=== PATIENT | female | born 1950 | race Caucasian/White ===

== ENCOUNTER → 2017-11-29 | Outpatient (CLI) | payer MEDICARE, OTHER ==
[~2017-11-29] MED LIST: ACET325; ACET325 PO; AMIT10; AMIT10 PO; ASPI81CH; ASPI81CH PO; ASPI81EC PO; AZEL137S NS; AZELASTINE137 MCG/0.; CETI10; CETI10 PO; CHOL10002; CHOL10002 PO; CICL.77TC; CYAN100 PO; CYAN1000; CYCL10; CYCL10 PO; DIAZ2; DIAZ2 PO; ESTR.1TPB TOP; ESTR.1TPBW; ESTR.1TPBW TOP; Evening Primro500 M1; FISH1000; FISH1000 PO; FLAX; FLAX PO; FLUO25TC; FLUO25TC TOP; HORMONE PATCH; HYDACE25S PR; HYDCHL12.5; HYDCHL12.5 PO; IPRAOI; IPRAOI INH; LOSA50 PO; LOSARTAN POTAS100 MG; MAGNESIUM250 MG; MAGOXI400 PO; METR59TL TOP; MOMENI; MULVITMIND; MULVITMIND PO; Metrocream45 GM; NAPR220; NAPR220 PO; ONDA4 PO; ONDA4ODT MM; OXYACE5T PO; OXYTROL PATCH; Oxytrol3.9 MG; PRIMROSE OIL PO; PYRI100 PO; RXONDA4ODT MM; RXOXYACE PO; UBID10; Vitamin D400 UNI1; ZYRTEC10 M2; Zofran4 MG PO; [UNRECOGNIZED DRUG - OTHER]; [UNRECOGNIZED DRUG - OTHER]
== END ==
LOC: PLD 10:33 → LAB SHORT 10:33
DX: D48.5 Neoplasm of uncertain behavior of skin (principal)
CPT/HCPCS: 88305

== ENCOUNTER 2018-03-30 09:21 | Day surgery (SDC) | payer MEDICARE, OTHER ==
[~2018-03-30] VITALS: Ht 162.6 cm; Wt 86.3 kg
[2018-03-30] MEDS ORDERED: METF500C ×2 (09:44→09:54)
[2018-03-30] MEDS ORDERED: Atrovent Inha12.9 GM (09:54)
[2018-03-30] MEDS ORDERED: MOMENI (09:54)
[2018-03-30] MEDS ORDERED: CETI5 (09:55)
[2018-03-30] MEDS ORDERED: Metrocream45 GM (09:55)
[2018-03-30] MEDS ORDERED: CYCL10 (09:55)
[2018-03-30] MEDS ORDERED: FISH OIL + D31 EACH (09:56)
== END 2018-03-30 11:53 | disposition home or self-care (01) ==
LOC: ORSCSDS 09:21
PROVIDERS: Internal Medicine Gastroenterology
PROC: 0DBK8ZX Excision of Ascending Colon, Via Natural or Artificial Opening Endoscopic, Diagnostic (ICD-10-PCS; principal; 2018-03-30 10:30)
PROC: 0DBN8ZX Excision of Sigmoid Colon, Via Natural or Artificial Opening Endoscopic, Diagnostic (ICD-10-PCS; principal; 2018-03-30 10:30)
PROC: 0DBL8ZX Excision of Transverse Colon, Via Natural or Artificial Opening Endoscopic, Diagnostic (ICD-10-PCS; principal; 2018-03-30 10:30)
DX: Z12.11 Encounter for screening for malignant neoplasm of colon (principal); D12.2 Benign neoplasm of ascending colon; D12.3 Benign neoplasm of transverse colon; K63.5 Polyp of colon; K64.8 Other hemorrhoids; Z86.010 Personal history of colon polyps; E11.9 Type 2 diabetes mellitus without complications; I10 Essential (primary) hypertension; J45.909 Unspecified asthma, uncomplicated; Z79.82 Long term (current) use of aspirin; Z79.899 Other long term (current) drug therapy
CPT/HCPCS: 82947; 88305

== ENCOUNTER → 2018-09-06 | Outpatient (CLI) | payer MEDICARE, OTHER ==
[~2018-09-06] MED LIST changes: +Atrovent Inha12.9 GM; +Azelex30 GM; +CETI5; +DIAZ5; +FISH OIL + D31 EACH; +METANX CAPSULE1 EACH; +METF500C; +PANT20; +Valium5 MG PO
[2018-09-08 15:06] LABS: HPV 16 Negative (Negative); HPV 18 Negative (Negative); HPV OTHER HR TYPES Negative (Negative)
== END | disposition home or self-care (01) ==
LOC: LAB SHORT 19:13 → LAB 19:13
PROVIDERS: Obstetrics & Gynecology Gynecology
DX: Z12.72 Encounter for screening for malignant neoplasm of vagina (principal)
CPT/HCPCS: 87624; G0123

== ENCOUNTER → 2018-12-06 | Outpatient (CLI) | payer MEDICARE, OTHER | END | disposition home or self-care (01) | LOC: PLD 10:10 → LAB SHORT 10:10 | DX: D48.5 Neoplasm of uncertain behavior of skin (principal) | CPT/HCPCS: 88305 ==

== ENCOUNTER → 2019-06-11 | Outpatient (CLI) | payer MEDICARE, OTHER | END | disposition home or self-care (01) | LOC: PLD 07:57 → LAB SHORT 07:57 | DX: D48.5 Neoplasm of uncertain behavior of skin (principal) | CPT/HCPCS: 88305 ==

== ENCOUNTER 2019-10-15 06:04 | Day surgery (SDC) | payer MEDICARE, OTHER ==
[~2019-10-15] VITALS: Ht 162.6 cm; Wt 84.9 kg
[~2019-10-15 06:04] MED LIST changes: +Atrovent Inha12.9 GM INH; +CLIMARA1 EACH TD; +Ciclopirox15 GM TOP; +DIAZ5 PO; +DYMISTA NASAL S23 GM; +Estrace Vagin42.5 GM VAG; +Oxytrol3.9 MG TOP; +TYLENOL325 MG PO; +ZYRTEC10 M2 PO
--- NOTE | 2019-10-15 06:46 | NUR ---
PT ADMITTED TO [facility]. AGREES WITH PLANNED SURGERY. LUNG SOUNDS CLEAR.
--- NOTE | 2019-10-15 09:51 | NUR ---
Patient up to Ambulate independently. Gait steady. Discharge instructions reviewed with patient. Patient verbalizes understanding. Copy given to patient to take home. Discharged via wheelchair to private car for ride home WITH SPOUSE.
== END 2019-10-15 12:00 | disposition home or self-care (01) ==
LOC: ORSCMMR 06:04 → ORD 07:30 → ORSCMMR 12:00
PROVIDERS: Surgery
PROC: 0JB70ZZ Excision of Back Subcutaneous Tissue and Fascia, Open Approach (ICD-10-PCS; principal; 2019-10-15 07:30)
DX: D17.79 Benign lipomatous neoplasm of other sites (principal); I10 Essential (primary) hypertension; E11.9 Type 2 diabetes mellitus without complications; K21.9 Gastro-esophageal reflux disease without esophagitis; J45.909 Unspecified asthma, uncomplicated; Z79.899 Other long term (current) drug therapy
CPT/HCPCS: 82947; 88304; J2250; J2704; J3010; J7120

== ENCOUNTER 2021-02-23 18:13 | Emergency (ER) | payer MEDICARE, OTHER ==
[~2021-02-23] VITALS: Ht 162.6 cm; Wt 85.3 kg
[2021-02-23 19:10] LABS: BASOPHILS ABSOLUTE AUTO 0.03 K/mm3 (0.00-0.23); BASOPHILS PERCENT AUTO 0 % (0-2); EOSINOPHILS ABSOLUTE AUTO 0.08 K/mm3 (0.00-0.68); EOSINOPHILS PERCENT AUTO 1 % (0-6); Hematocrit 39.3 % (33.0-51.0); Hemoglobin 13.5 g/dL (11.5-16.0); IMMATURE GRAN ABSOLUTE AUTO 0.02 K/mm3 (0.00-0.10); IMMATURE GRAN PERCENT AUTO 0 % (0-1); LYMPHOCYTES ABSOLUTE AUTO 2.21 K/mm3 (0.84-5.20); LYMPHOCYTES PERCENT AUTO 32 % (21-46); MONOCYTES ABSOLUTE AUTO 0.47 K/mm3 (0.16-1.47); MONOCYTES PERCENT AUTO 7 % (4-13); Mean Corpuscular HGB 30.3 pg (26.0-34.0); Mean Corpuscular HGB Conc 34.4 g/dL (31.5-36.5); Mean Corpuscular Volume 88 fL (80-100); Mean Platelet Volume 9.3 fL (9.1-12.4); NEUTROPHILS ABSOLUTE AUTO 4.13 K/mm3 (1.96-9.15); NEUTROPHILS PERCENT AUTO 60 % (41-73); Platelet Count 182 K/mm3 (150-400); RDW Coefficient Variation 12.4 % (11.7-14.2); RDW Standard Deviation 40.4 fL (35.1-46.3); Red Blood Cell Count 4.45 M/mm3 (3.80-5.20); White Blood Cell Count 6.94 K/mm3 (4.00-11.30)
[2021-02-23 19:38] LABS: Alanine Aminotransfer (ALT/SGP 31 U/L (12-78); Albumin, Blood 3.9 g/dL (3.4-5.0); Albumin/Globulin Ratio 1.1 (0.8-1.8); Alk Phos 54 U/L (50-136); Anion Gap 6 mmol/L (6-16); Aspartate Aminotrans (AST/SGOT 22 U/L (12-37); Bilirubin, Total 0.4 mg/dL (0.1-1.0); Blood Urea Nitrogen 16 mg/dL (8-24); Bun/Creatinine Ratio 24.1 (12.0-20.0); CO2, Blood 24 mmol/L (21-32); Calcium, Blood 9.2 mg/dL (8.5-10.1); Chloride, Blood 108 mmol/L (98-108); Creatinine, Blood 0.66 mg/dL (0.40-1.00); Globulin, Blood 3.5 g/dL (2.2-4.0); Glomerular Filtration Rate >60 (60-); Glucose, Blood 122 mg/dL (70-99); Potassium, Blood 4.1 mmol/L (3.5-5.5); Sodium, Blood 138 mmol/L (136-145); Total Protein, Blood 7.4 g/dL (6.4-8.2); Troponin I <0.015 ng/mL (0.000-0.040)
[2021-02-23 20:22] LABS: Source, Urine Clean Catch
[2021-02-23 20:26] LABS: Appearance, Urine Clear (Clear); Bilirubin, Urine Neg (Neg); Blood, Urine Neg (Neg); Color, Urine Yellow (P-Yellow); Glucose Qualitative, Urine Neg (Neg); Ketones, Urine Neg (Neg); Leukocyte Esterase, Urine Neg (Neg); Nitrite, Urine Neg (Neg); Protein, Urine Neg (Neg); Urobilinogen, Urine NORM (Normal)
== END 2021-02-23 22:19 | disposition home or self-care (01) ==
LOC: ER 18:13
PROVIDERS: Physician Assistant
DX: R07.9 Chest pain, unspecified (principal); Z79.899 Other long term (current) drug therapy
CPT/HCPCS: 36415; 71045; 80053; 81003; 83690; 83880; 84484; 85025; 93005; 93010; 99285-25

== ENCOUNTER 2021-09-23 10:00 | Day surgery (SDC) | payer MEDICARE, OTHER ==
[~2021-09-23] VITALS: Ht 162.6 cm; Wt 81.6 kg
--- NOTE | 2021-09-23 10:57 | NUR ---
09/23/21 Mary7 BEBO BOJORQUEZ 2 ATTEMPTS FOR IV. FIRST ATTEMPT BY MA IN R FOREARM INFILTRATED. SECOND ATTEMPT BY MA IN R HAND SUCCESSFUL.
== END 2021-09-23 12:42 | disposition home or self-care (01) ==
LOC: ORSCSDS 10:00
DX: Z12.11 Encounter for screening for malignant neoplasm of colon (principal); Z86.010 Personal history of colon polyps; D12.2 Benign neoplasm of ascending colon; D12.0 Benign neoplasm of cecum; D12.3 Benign neoplasm of transverse colon; D12.4 Benign neoplasm of descending colon; K63.5 Polyp of colon; K64.4 Residual hemorrhoidal skin tags; I10 Essential (primary) hypertension; J45.909 Unspecified asthma, uncomplicated; Z79.899 Other long term (current) drug therapy; Z79.82 Long term (current) use of aspirin
CPT/HCPCS: 82947; 88305; J2704; J7120

== ENCOUNTER 2022-01-13 20:37 | Emergency (ER) | payer MEDICARE, OTHER ==
[~2022-01-13] VITALS: Ht 162.6 cm; Wt 83.0 kg
[2022-01-13 21:14] LABS: BASOPHILS ABSOLUTE AUTO 0.03 K/mm3 (0.00-0.23); BASOPHILS PERCENT AUTO 0 % (0-2); EOSINOPHILS ABSOLUTE AUTO 0.07 K/mm3 (0.00-0.68); EOSINOPHILS PERCENT AUTO 1 % (0-6); Hematocrit 39.4 % (33.0-51.0); Hemoglobin 13.6 g/dL (11.5-16.0); IMMATURE GRAN ABSOLUTE AUTO 0.02 K/mm3 (0.00-0.10); IMMATURE GRAN PERCENT AUTO 0 % (0-1); LYMPHOCYTES ABSOLUTE AUTO 2.19 K/mm3 (0.84-5.20); LYMPHOCYTES PERCENT AUTO 28 % (21-46); MONOCYTES ABSOLUTE AUTO 0.41 K/mm3 (0.16-1.47); MONOCYTES PERCENT AUTO 5 % (4-13); Mean Corpuscular HGB 30.4 pg (26.0-34.0); Mean Corpuscular HGB Conc 34.5 g/dL (31.5-36.5); Mean Corpuscular Volume 88 fL (80-100); Mean Platelet Volume 9.6 fL (9.1-12.4); NEUTROPHILS ABSOLUTE AUTO 5.14 K/mm3 (1.96-9.15); NEUTROPHILS PERCENT AUTO 65 % (41-73); Platelet Count 181 K/mm3 (150-400); RDW Coefficient Variation 12.2 % (11.7-14.2); RDW Standard Deviation 39.5 fL (35.1-46.3); Red Blood Cell Count 4.48 M/mm3 (3.80-5.20); White Blood Cell Count 7.86 K/mm3 (4.00-11.30)
[2022-01-13 22:01] LABS: Albumin, Blood 3.6 g/dL (3.4-5.0); Bilirubin, Total 0.4 mg/dL (0.1-1.0); Calcium, Blood 8.9 mg/dL (8.5-10.1); Creatinine, Blood 0.64 mg/dL (0.40-1.00); Globulin, Blood 3.5 g/dL (2.2-4.0); Potassium, Blood 3.8 mmol/L (3.5-5.5); Total Protein, Blood 7.1 g/dL (6.4-8.2)
[2022-01-13] MEDS ORDERED: FAMO20 PO (23:58)
[2022-01-13] MEDS ORDERED: ALMACONE SUSPE355 ML PO (23:58)
== END 2022-01-14 00:13 | disposition home or self-care (01) ==
LOC: ER 20:37
PROVIDERS: Physician Assistant
DX: R07.9 Chest pain, unspecified (principal); K21.9 Gastro-esophageal reflux disease without esophagitis; Z79.899 Other long term (current) drug therapy; Z88.2 Allergy status to sulfonamides; Z88.5 Allergy status to narcotic agent; Z88.8 Allergy status to other drugs, medicaments and biological substances; Z91.040 Latex allergy status
CPT/HCPCS: 36415; 71045; 80053; 83880; 84484; 85025; 93005; 93010; 96374; 99285-25; A9270

== ENCOUNTER → 2024-01-15 | Outpatient (CLI) | payer MEDICARE, OTHER ==
[~2024-01-15] MED LIST changes: +ALMACONE SUSPE355 ML PO; +FAMO20 PO
== END ==
LOC: LAB 16:17 → LAB SHORT 16:17
DX: N39.0 Urinary tract infection, site not specified (principal)
CPT/HCPCS: 87086

== ENCOUNTER → 2025-02-19 | Outpatient (CLI) | payer MEDICARE, OTHER | END | disposition home or self-care (01) | LOC: LAB 17:15 → LAB SHORT 17:15 | DX: R30.0 Dysuria (principal) | CPT/HCPCS: 87077; 87086; 87186 ==

== ENCOUNTER 2025-03-28 09:05 | Day surgery (SDC) | payer MEDICARE, OTHER ==
[~2025-03-28] VITALS: Ht 162.6 cm; Wt 76.5 kg
[2025-03-28] MEDS ORDERED: Cyclobenzaprine5 MG (09:47)
[2025-03-28] MEDS ORDERED: CARV6.25 (09:47)
[2025-03-28] MEDS ORDERED: AVEIDA 1%-1% GE30 GM (09:48)
[2025-03-28] MEDS ORDERED: EFUDEX40 GM (09:48)
[2025-03-28] MEDS ORDERED: LEVALBUTEROL TA15 G1 (09:49)
[2025-03-28] MEDS ORDERED: JARDIANCE25 MG (09:49)
[2025-03-28] MEDS ORDERED: CLOP75 (09:50)
[2025-03-28] MEDS ORDERED: OZEMPIC0.25 MG/02 (09:50)
[2025-03-28] MEDS ORDERED: PRALUENT P75 MG/1 ML (09:50)
[2025-03-28] MEDS ORDERED: SPIR25 (09:51)
[2025-03-28] MEDS ORDERED: TRAUMEEL (09:52)
[2025-03-28 11:39] VITALS: BP 120/64
== END 2025-03-28 11:43 | disposition home or self-care (01) ==
LOC: ORSCSDS 09:05
PROVIDERS: Internal Medicine Gastroenterology
PROC: 0DBK8ZX Excision of Ascending Colon, Via Natural or Artificial Opening Endoscopic, Diagnostic (ICD-10-PCS; principal; 2025-03-28 10:30)
PROC: 0DBL8ZX Excision of Transverse Colon, Via Natural or Artificial Opening Endoscopic, Diagnostic (ICD-10-PCS; principal; 2025-03-28 10:30)
DX: Z12.11 Encounter for screening for malignant neoplasm of colon (principal); Z86.0100 Personal history of colon polyps, unspecified; K63.5 Polyp of colon; E11.9 Type 2 diabetes mellitus without complications; K64.4 Residual hemorrhoidal skin tags; I10 Essential (primary) hypertension; J45.909 Unspecified asthma, uncomplicated; Z79.02 Long term (current) use of antithrombotics/antiplatelets; Z79.899 Other long term (current) drug therapy
CPT/HCPCS: 82947; 88305; J2704; J7120

== ENCOUNTER → 2025-07-11 | Outpatient (CLI) | payer MEDICARE, OTHER ==
[~2025-07-11] MED LIST changes: +AVEIDA 1%-1% GE30 GM; +CARV6.25; +CLOP75; +Cyclobenzaprine5 MG; +EFUDEX40 GM; +JARDIANCE25 MG; +LEVALBUTEROL TA15 G1; +OZEMPIC0.25 MG/02; +PRALUENT P75 MG/1 ML; +SPIR25; +TRAUMEEL
== END ==
LOC: LAB SHORT 18:24 → LAB 18:24
DX: R30.0 Dysuria (principal)
CPT/HCPCS: 87077; 87086; 87186

== ENCOUNTER → 2025-08-06 | Outpatient (CLI) | payer MEDICARE, OTHER ==
[2025-08-06 12:31] LABS: BASOPHILS ABSOLUTE AUTO 0.02 K/mm3 (0.00-0.23); BASOPHILS PERCENT AUTO 0 % (0-2); EOSINOPHILS ABSOLUTE AUTO 0.05 K/mm3 (0.00-0.68); EOSINOPHILS PERCENT AUTO 1 % (0-6); Hematocrit 42.2 % (33.0-51.0); Hemoglobin 14.1 g/dL (11.5-16.0); IMMATURE GRAN ABSOLUTE AUTO 0.02 K/mm3 (0.00-0.10); IMMATURE GRAN PERCENT AUTO 0 % (0-1); LYMPHOCYTES ABSOLUTE AUTO 1.58 K/mm3 (0.84-5.20); LYMPHOCYTES PERCENT AUTO 28 % (21-46); MONOCYTES ABSOLUTE AUTO 0.35 K/mm3 (0.16-1.47); MONOCYTES PERCENT AUTO 6 % (4-13); Mean Corpuscular HGB Conc 33.4 g/dL (31.5-36.5); Mean Corpuscular Volume 90 fL (80-100); NEUTROPHILS ABSOLUTE AUTO 3.67 K/mm3 (1.96-9.15); NEUTROPHILS PERCENT AUTO 64 % (41-73); NRBC ABSOLUTE 0.00 K/mm3 (0.00-0.02); NRBC Auto 0.0 /100 WBC (0.0-0.2); Platelet Count 186 K/mm3 (150-400); RDW Coefficient Variation 12.9 % (11.7-14.2); RDW Standard Deviation 42.2 fL (35.1-46.3)
[2025-08-06 12:39] LABS: Alanine Aminotransfer (ALT/SGP 22.0 U/L (12-78); Albumin, Blood 4.1 g/dL (3.4-5.0); Albumin/Globulin Ratio 1.1 (0.8-1.8); Anion Gap 11.0 mmol/L (3-11); Aspartate Aminotrans (AST/SGOT 14.0 U/L (12-37); Bilirubin, Total 1.0 mg/dL (0.1-1.0); Blood Urea Nitrogen 20.0 mg/dL (8-24); CO2, Blood 26.0 mmol/L (21-32); Calcium, Blood 9.2 mg/dL (8.5-10.1); Chloride, Blood 101.0 mmol/L (98-108); Creatinine, Blood 0.89 mg/dL (0.40-1.00); Globulin, Blood 3.7 g/dL (2.2-4.0); Glucose, Blood 182.0 mg/dL (70-99); Potassium, Blood 4.4 mmol/L (3.5-5.5); Sodium, Blood 134.0 mmol/L (136-145); Total Protein, Blood 7.8 g/dL (6.4-8.2)
== END | disposition home or self-care (01) ==
LOC: LAB 12:23 → LAB SHORT 12:23
PROVIDERS: Chiropractor
DX: R10.A1 Flank pain, right side (principal); R30.0 Dysuria
CPT/HCPCS: 80053; 83690; 85025